=== PATIENT | male | born 1985 | race Two or more races ===

== ENCOUNTER 2017-01-27 06:54 | Outpatient (CLI) | payer SELFPAY ==
[2017-01-27 13:21] LABS: ALBUMIN/GLOBULIN RATIO 1.3 (1.0-2.2); BILIRUBIN,TOTAL 1.5 mg/dL (0.2-1.0); BUN - BLOOD UREA NITROGEN 10 mg/dL (6-20); CARBON DIOXIDE - CO2 30 mmol/L (21-32); CHLORIDE 102 mmol/L (101-111); CHOL/HDL RATIO 3.8 (<5.0); CHOLESTEROL 226 mg/dL; CREATININE 0.6 mg/dL (0.6-1.2); GFR - MDRD 158 (>89); GLUCOSE 111 mg/dL (70-100); HDL CHOLESTEROL 60 mg/dL; LDL/HDL RATIO 2.4 (<3.6); POTASSIUM 3.7 mmol/L (3.5-5.0); SODIUM 139 mmol/L (135-145); TOTAL PROTEIN 7.8 g/dL (6.7-8.2); TRIGLYCERIDES 127 mg/dL; VLDL CHOLESTEROL 25 mg/dL
== END 2017-01-27 06:55 | disposition home or self-care (01) ==
LOC: LAB.N 06:54
PROVIDERS: ATTEND Family Medicine
DX: E78.5 Hyperlipidemia, unspecified (principal)
CPT/HCPCS: 36415; 80053; 80061